=== PATIENT | male | born 1990 | race Caucasian/White ===

== ENCOUNTER 2016-06-26 19:05 | Emergency (ER) | payer OTHER ==
--- NOTE | ~2016-06-26 | ER ---
PATIENT'S NAME: BEBE ABEBE [facility] AGE: 26 Y [address] ROOM: [place] [address] LOCATION: ED ADMIT DATE: 06/26/2016 ER/Outpatient Report DISCHARGE DATE: 06/26/2016 FAMILY PHYSICIAN: Mahesh Guerra MD ATTENDING PHYSICIAN: Neena Ball Time of Arrival: 1905 hours. Time of Evaluation: 1946 hours. IDENTIFICATION: A 26-year-old male. CHIEF COMPLAINT: Headache, nausea and vomiting. HISTORY OF PRESENT ILLNESS: The patient is a 26-year-old male, who has headache, nausea, vomiting, and diarrhea since this morning. He has vomited 6 times, 4-6 diarrhea stools. No blood in his stool. No dark, tarry, or black stools. He has also had some chest pain off and on for the last 6 months; has been seen here in the ER and has followed up with Cardiology. PAST MEDICAL HISTORY: ALLERGIES: NO KNOWN DRUG ALLERGIES. CURRENT MEDICATIONS: Denies. MEDICAL PROBLEMS: Denies. No prior surgeries or hospitalizations. SOCIAL HISTORY: The patient lives here in [place], works at [employer]. No recent travel. He does have ill contacts at work. Tobacco use, denies. Alcohol use, denies. Drug use, denies. His family practice physician is Dr. Guerra. REVIEW OF SYSTEMS: All systems reviewed and negative other than what is noted in the HPI. PATIENT'S NAME: BEBE ABEBE [facility] AGE: 26 Y [address] ROOM: [place] [address] LOCATION: ED ADMIT DATE: 06/26/2016 ER/Outpatient Report DISCHARGE DATE: 06/26/2016 FAMILY PHYSICIAN: Mahesh Guerra MD ATTENDING PHYSICIAN: Neena Ball FAMILY HISTORY: No pertinent family history identified. PHYSICAL EXAMINATION: VITAL SIGNS: Weight 88.9 kg. Blood pressure 124/61, pulse 102, respirations 20, temperature 99.3, saturations 96% on room air; recheck 122/76, pulse 100, respirations 16, temperature 100; and his pain improved from a 10 to a 2. GENERAL: A 26-year-old male, in no acute distress. HEENT: Head: Normocephalic, atraumatic. Ears: TMs translucent, both ears. Eyes: Pupils equal and reactive to light and accommodation. Extraocular movements intact. Nose: Mucosa pink, no lesions. Mouth: No lesions. Pharynx benign. Mucous membranes are moist. NECK: Supple. No lymphadenopathy. No nuchal rigidity. LUNGS: Clear to auscultation. HEART: Regular rate and rhythm. No murmur, rub, or gallop. ABDOMEN: Bowel sounds present. Soft, nondistended. No hepatosplenomegaly. No palpable mass. Was diffusely tender to deep palpation. No rebound or guarding. SKIN: [place], warm, and dry. No lesions or rashes noted. LABORATORY DATA AND X-RAYS: C. diff negative. O and P screen negative. Fecal leukocytes negative. Occult blood positive. Hemoglobin 16.7, hematocrit 48.3, platelets 174, white count 7.5 with 82% segs and 3% bands. Sodium 140, potassium 3.8, chloride 105, CO2 of 26, BUN 11, creatinine 1.1, blood sugar 103. Liver enzymes normal. Amylase 78, lipase 154. CPK 210, CK-MB 0.7, troponin I less than 0.040. EKG: Normal sinus rhythm at 95 beats per minute. No acute ST elevation or depression. Nonspecific T-wave changes. No change when compared to previous EKG dated June 05, 2015, December 14, 2015. The patient was given 1 L of IV fluids; was given Zofran 4 mg IV for nausea and Tylenol 650 mg p.o. for headache. His headache improved to a 5. His nausea was also improved, no further emesis, but he still did not feel quite as well as he could. We did give him a second liter of IV fluids and Toradol 30 mg IV. His headache improved to a 2. He was feeling better, but continued to have diarrhea. IMPRESSION: Gastroenteritis. PLAN: Clear liquids as tolerated. Advance diet as tolerated. Zofran 4 mg 1 p.o. q.6 hours p.r.n. nausea, dispensed 4 with 0 refills. Imodium [id number]-[id number] sparingly. Remain off work for 2 days and follow up with Dr. Guerra in 1 day. Follow up sooner if any problems or concerns. The patient understands and agrees. No questions have been answered. PATIENT'S NAME: BEBE ABEBE [facility] AGE: 26 Y [address] ROOM: [place] [address] LOCATION: [facility] ADMIT DATE: 06/26/2016 ER/Outpatient Report DISCHARGE DATE: 06/26/2016 FAMILY PHYSICIAN: Mahesh Guerra MD ATTENDING PHYSICIAN: Neena Ball NEENA BALL MD CAR/modl /[id number] d: 06/27/16 0358 t: 06/27/16 0454, OUTPATIENT REPORT
[2016-06-26 20:25] LABS: HEMATOCRIT 48.3 % (37.0-53.0); HEMOGLOBIN 16.7 g/dL (12.0-17.0); MCH 30.8 pg (27.0-34.0); MCHC 34.6 gm/dL (32.0-36.5); MPV 10.2 fl (9.4-12.4); PLATELET COUNT 174 K/uL (150-450); RBC 5.43 M/uL (4.00-6.00); RDW-CV 12.5 % (11.9-14.6); WBC 7.5 K/uL (4.0-11.0)
[2016-06-26 20:44] LABS: ALBUMIN 4.1 gm/dL (3.5-5.0); ALK PHOS 47 IU/L (33-138); ALT 52 IU/L (12-78); ANION GAP 12.8 (10.0-19.0); AST 33 IU/L (10-40); BLOOD UREA NITROGEN 11 mg/dL (6-24); CALCIUM 8.7 mg/dL (8.5-10.5); CHLORIDE 105 mMol/L (96-110); CO2 26 mMol/L (22-32); CPK 210 IU/L (35-332); CREATININE 1.1 mg/dL (0.6-1.3); ESTIMATED GFR (MDRD EQUATION) > 60; POTASSIUM 3.8 mMol/L (3.7-5.1); SODIUM 140 mMol/L (135-145); TOTAL BILIRUBIN 0.5 mg/dL (0.0-1.5); TOTAL PROTEIN 7.9 g/dL (6.0-8.4)
[2016-06-26 20:49] LABS: ABSOLUTE NEUTROPHIL CT (ANC) 6.4 K/uL (1.4-9.0); BANDED NEUTROPHIL # 0.2 K/uL (0.0-0.1); BANDED NEUTROPHILS % 3 %; LYMPHOCYTE # 0.5 K/uL (0.8-4.0); LYMPHOCYTE % 7 %; MONOCYTE # 0.5 K/uL (0.0-1.0); SEGMENTED NEUTROPHIL # 6.2 K/uL (1.4-9.0); SEGMENTED NEUTROPHIL % 82 %
[2016-08-05] MEDS ORDERED: DIFLUCAN200 MG PO (09:26)
[2016-08-14] MEDS ORDERED: OMEPRAZOLE40 MG PO (10:45)
== END 2016-06-26 22:55 | disposition disaster alternative care site (69) ==
LOC: GMED 19:05
PROVIDERS: Family Medicine
DX: K52.9 Noninfective gastroenteritis and colitis, unspecified (principal)
CPT/HCPCS: J1885; J2405; J7030

== ENCOUNTER 2016-07-17 00:30 | Emergency (ER) | payer OTHER ==
--- NOTE | ~2016-07-17 | ER ---
PATIENT'S NAME: BEBE ABEBE [facility] AGE: 26 Y [address] ROOM: [place] [address] LOCATION: [facility] ADMIT DATE: 07/17/2016 ER/Outpatient Report DISCHARGE DATE: 07/17/2016 FAMILY PHYSICIAN: Mahesh Guerra MD ATTENDING PHYSICIAN: Valentín Garcia TIME OF ARRIVAL: 0030 hours. TIME OF EVALUATION: 0055 hours. CHIEF COMPLAINT: Headache. HISTORY OF PRESENT ILLNESS: The patient is a 26-year-old male who presents to the emergency department today with a chief complaint of headache. He reports this started days ago, but he is having it all day. He feels dizziness and feels like it is on the top of his head. He is also having weird feelings in his arms like he is having . He complains of diffuse pain, chest pain, back pain, headache, and abdominal pain. Denies any fevers or chills. No nausea or vomiting. No diarrhea or constipation. He did have a history of some diarrhea last week. It is a sharp, diffuse pain. PAST MEDICAL HISTORY: None. PAST SURGICAL HISTORY: None. SOCIAL HISTORY: The patient denies any tobacco, alcohol, or illicit drug use. ALLERGIES: NO KNOWN DRUG ALLERGIES. MEDICATIONS: None. REVIEW OF SYSTEMS: All systems are reviewed by myself are negative with the exception of those discussed in HPI and past medical history. PHYSICAL EXAMINATION: PATIENT'S NAME: BEBE ABEBE [facility] AGE: 26 Y [address] ROOM: [place] [address] LOCATION: [facility] ADMIT DATE: 07/17/2016 ER/Outpatient Report DISCHARGE DATE: 07/17/2016 FAMILY PHYSICIAN: Mahesh Guerra MD ATTENDING PHYSICIAN: Valentín Garcia VITAL SIGNS: Weight 90.2 kg, blood pressure 140/70, pulse 72, respiratory rate 16, temperature 98.0, and oxygen saturation 95% on room air. GENERAL: The patient is a 26-year-old male, appears stated age, in no acute distress at this time. HEENT: Normocephalic, atraumatic. Pupils are equal, round, and reactive to light and accommodation. Extraocular motions are intact. Nares are patent bilaterally. TMs are clear. Oropharynx is clear. NECK: Supple. There is no nuchal rigidity. CARDIOVASCULAR: Regular rate and rhythm. No murmurs, rubs, or gallops. LUNGS: Clear to auscultation bilaterally. No wheezes, rales, or rhonchi. ABDOMEN: Soft, nontender, and nondistended. No rebound, rigidity, or guarding. MUSCULOSKELETAL: The patient moves all 4 extremities. A 5/5 muscle strength. NEUROLOGICAL: GCS 15. Alert and oriented x4. Cranial nerves 2 through 12 are grossly intact. Normal facial sensation. Normal facial motor. Equal gas pump attendant strength bilaterally. No pronator drift. Normal vocxtc-tl-xuny. Downward going toes. No clonus. A 2/4 reflexes. SKIN: Warm and dry. There are no rashes or lesions noted. LABS AND X-RAYS: Labs and x-rays are obtained. CT scan of the brain is obtained and is reviewed by [facility] shows no acute process. CBC is normal. CMP is normal. IMPRESSION: 1. Cephalgia. 2. Initial visit. EMERGENCY DEPARTMENT COURSE: The patient brought back to the examination room. Seen and evaluated by myself. The patient is given 10 mg of Compazine IM as well as 50 mg of Benadryl IM. Workup was unremarkable. I have discussed results with the patient. I have written a prescription for Vistaril for home. I have discussed [id number] instructions including worsening symptoms or any other concerns to return to the emergency department as soon as possible. Otherwise, the patient is to follow up with Dr. Guerra in 2-3 days for reevaluation. DISPOSITION: The patient is discharged home in good condition. PATIENT'S NAME: BEBE ABEBE [facility] AGE: 26 Y [address] ROOM: [place], [place] [address] LOCATION: [facility] ADMIT DATE: 07/17/2016 ER/Outpatient Report DISCHARGE DATE: 07/17/2016 FAMILY PHYSICIAN: Mahesh Guerra MD ATTENDING PHYSICIAN: Valentín Garcia, DO [employer]/modl /[id number] d: 07/17/16 0403 t: 07/24/16 1018, OUTPATIENT REPORT
[2016-07-17 01:16] LABS: BASOPHIL # 0.1 K/uL (0.0-0.2); BASOPHIL % 0.7 %; EOSINOPHIL # 0.2 K/uL (0.0-0.5); EOSINOPHIL % 2.7 %; HEMATOCRIT 47.5 % (37.0-53.0); HEMOGLOBIN 16.1 g/dL (12.0-17.0); IMMATURE GRANULOCYTE % 0.1 %; LYMPHOCYTE # 2.7 K/uL (0.8-4.0); LYMPHOCYTE % 37.6 %; MCH 30.4 pg (27.0-34.0); MCHC 33.9 gm/dL (32.0-36.5); MCV 89.6 fl (83.0-98.0); MONOCYTE # 0.7 K/uL (0.0-1.0); MONOCYTE % 9.5 %; MPV 10.5 fl (9.4-12.4); NEUTROPHIL # (ANC) 3.5 K/uL (1.4-9.0); NEUTROPHIL % 49.4 %; NRBC % 0 /100WBC (0-0.00); PLATELET COUNT 195 K/uL (150-450); RDW-CV 12.6 % (11.9-14.6); WBC 7.1 K/uL (4.0-11.0)
[2016-07-17 01:32] LABS: ALBUMIN 3.9 gm/dL (3.5-5.0); ALK PHOS 49 IU/L (33-138); ALT 56 IU/L (12-78); AST 21 IU/L (10-40); BLOOD UREA NITROGEN 14 mg/dL (6-24); CALCIUM 8.8 mg/dL (8.5-10.5); CHLORIDE 104 mMol/L (96-110); CO2 27 mMol/L (22-32); CREATININE 0.9 mg/dL (0.6-1.3); ESTIMATED GFR (MDRD EQUATION) > 60; SODIUM 139 mMol/L (135-145); TOTAL BILIRUBIN 0.3 mg/dL (0.0-1.5); TOTAL PROTEIN 7.6 g/dL (6.0-8.4)
[2016-08-05] MEDS ORDERED: DIFLUCAN200 MG PO (09:26)
[2016-08-14] MEDS ORDERED: OMEPRAZOLE40 MG PO (10:45)
== END 2016-07-17 01:56 | disposition disaster alternative care site (69) ==
LOC: GMED 00:30
PROVIDERS: Emergency Medicine
DX: R51 Headache (principal)
CPT/HCPCS: J0780; J1200

== ENCOUNTER → 2016-07-22 | Outpatient (CLI) | payer OTHER ==
[~2016-07-22] MED LIST: DIFLUCAN200 MG PO; OMEPRAZOLE40 MG PO
== END | disposition disaster alternative care site (69) ==
LOC: GRAD 07:41
DX: R10.9 Unspecified abdominal pain (principal)
CPT/HCPCS: Q9967

== ENCOUNTER → 2016-08-06 | Day surgery (SDC) | payer OTHER ==
[~2016-08-06] VITALS: Ht 165.1 cm; Wt 90.4 kg
== END | disposition disaster alternative care site (69) ==
LOC: GPOC 08-01 09:00 → GEND 08:11 → GPOC 09:00
PROC: 0DBE8ZX Excision of Large Intestine, Via Natural or Artificial Opening Endoscopic, Diagnostic (ICD-10-PCS; principal; 2016-08-06)
DX: R19.7 Diarrhea, unspecified (principal)
CPT/HCPCS: J7030

== ENCOUNTER → 2016-08-14 | Day surgery (SDC) | payer OTHER ==
[~2016-08-14] VITALS: Ht 165.1 cm; Wt 89.0 kg
== END | disposition disaster alternative care site (69) ==
LOC: GEND 07:48 → EDSTATUS 08:00 → GOPP 08:00
PROC: 0DB68ZX Excision of Stomach, Via Natural or Artificial Opening Endoscopic, Diagnostic (ICD-10-PCS; principal; 2016-08-14)
PROC: 0DB58ZX Excision of Esophagus, Via Natural or Artificial Opening Endoscopic, Diagnostic (ICD-10-PCS; 2016-08-14)
PROC: 0DB98ZX Excision of Duodenum, Via Natural or Artificial Opening Endoscopic, Diagnostic (ICD-10-PCS; 2016-08-14)
DX: K22.10 Ulcer of esophagus without bleeding (principal); K25.9 Gastric ulcer, unspecified as acute or chronic, without hemorrhage or perforation
CPT/HCPCS: J2001; J7030